=== PATIENT | male | born 1990 | race Caucasian/White ===

== ENCOUNTER 2022-02-03 16:22 | Emergency (ER) | payer OTHER, SELFPAY ==
--- NOTE | ~2022-02-03 | XR_ITS ---
EXAMINATION: XR CHEST CLINICAL INFORMATION: Shortness of breath COMPARISON: Chest x-ray 09/30/2019 TECHNIQUE: 2 views of the chest were obtained. FINDINGS: No significant abnormality is noted involving the heart, lungs, mediastinum, bony thorax or soft tissues. XR/XR chest 2V IMPRESSION: Unremarkable examination.
--- NOTE | ~2022-02-03 | US_ITS ---
EXAMINATION: US ABDOMEN LIMITED CLINICAL INFORMATION: Upper abdominal pain. Evaluate gallbladder.. COMPARISON: None TECHNIQUE: Limited right upper quadrant abdominal ultrasound for evaluation of the gallbladder. FINDINGS: PANCREAS: Not imaged. LIVER: Not fully evaluated. There is. The mildly increased hepatic echotexture suggesting fatty infiltration-limited assessment. GALLBLADDER: The gallbladder is physiologically distended without evidence of stones, sludge, polyps, wall thickening or pericholecystic fluid. Question of mild ringdown artifact in the fundus, possibly mild focal adenomyomatosis. The patient did not have a sonographic Joyner sign at time of the exam per technologist report. COMMON BILE DUCT: Normal in caliber measuring 0.3 cm in diameter. RIGHT KIDNEY: Not imaged FREE FLUID: None. US/US abdomen limited IMPRESSION: 1. No evidence of cholelithiasis or acute cholecystitis. No biliary ductal dilation.
[2022-02-03 16:28] VITALS: BP 116/62; PULSE 89; RESP 18; TEMP 36.6; O2SAT 96; BMI 40.2
--- NOTE | 2022-02-03 16:32 | ECG_ITS ---
Test Reason : sob Blood Pressure : / mmHG Vent. Rate : 084 BPM Atrial Rate : 084 BPM P-R Int : 156 ms QRS Dur : 088 ms QT Int : 348 ms P-R-T Axes : 049 069 057 degrees QTc Int : 411 ms Normal sinus rhythm Normal ECG When compared with ECG of 18-JUN-2019 12:14, No significant change was found Referred By: Generic ED Physician Electronically Signed By:Harris Emerson
[2022-02-03 16:45] LABS: MANUAL DIFF FLAG NO
[2022-02-03 16:47] LABS: Basophils Percent Auto 0.3 % (0-2); Eosinophils Absolute Auto 0.1 X10*3/uL (0.0-0.4); Eosinophils Percent Auto 1.2 % (0-4); Hematocrit 46.3 % (42.0-52.0); Hemoglobin 15.6 g/dl (14.0-18.0); Imm Gran Abs Auto 0.02 X10*3/uL (0.00-0.03); Imm Gran Pct Auto 0.3 % (0.0-0.4); Lymphocytes Absolute Auto 1.5 X10*3/uL (1.2-4.9); Lymphocytes Percent Auto 22.9 % (20-40); Mean Corpuscular HGB Conc 33.7 g/dl (31.0-36.0); Mean Corpuscular Hemoglobin 27.7 pg (27.0-33.0); Mean Corpuscular Volume 82.1 fL (80.0-98.0); Mean Platelet Volume 11.1 fL (9.4-12.4); Monocytes Absolute Auto 0.5 X10*3/uL (0.1-1.2); Neutrophils Absolute Auto 4.4 x10*3/uL (2.0-8.3); Neutrophils Percent Auto 67.3 % (45-73); Platelet Count 256 X10*3/uL (160-400); Red Blood Count 5.64 X10*6/uL (4.60-5.80); White Blood Count 6.5 X10*3/uL (4.8-10.8)
[2022-02-03 17:03] LABS: COVID-19 Test Negative (Negative)
[2022-02-03 17:09] LABS: Alanine Aminotransferase 48 U/L (0-40); Albumin Level 4.5 g/dL (3.5-5.0); Alkaline Phosphatase 89 U/L (39-117); Anion Gap 11 (12-20); Aspartate Amino Transferase 20 U/L (5-37); Bilirubin Total 0.5 mg/dL (0.0-1.0); Blood Urea Nitrogen 11 mg/dL (9-16); Calcium 9.2 mg/dL (8.4-10.2); Carbon Dioxide 25 mmol/L (22-29); Chloride 107 mmol/L (96-108); Creatinine Clr Calc Pharmacy 185.2; Estimated Glomerular Filt Rate > 60; Glucose Random 79 mg/dL (60-115); Lipase 9 U/L (8-78); Sodium 139 mmol/L (135-145)
[2022-02-03 17:15] LABS: Troponin-I High Sensitivity < 3.5 ng/L (<3.5-35.0)
--- NOTE | 2022-02-03 17:31 | ED_ITS ---
HPI - SOB/Dyspnea General Chief Complaint: Dyspnea Stated Complaint: sob and upper abd pain Time Seen by Provider: 02/03/22 17:19 Source: patient Mode of arrival: ambulatory Limitations: no limitations History of Present Illness HPI Narrative: 31 yo male who is obese with no other medical history here with complaints of MENDOSA >10 yrs. He has no associated cough, wheezing, chest pain, leg swelling or leg pain. He also has SOB at nighttime and wakes with it. He has spoken to his PCP and they recommended he lose weight. He has not had any PFTS or sleep apnea testing. He has no history of asthma but does have family history. He also reports upper abdominal tightness which wraps around him like a band daily which is worsened at nighttime and he normally has one episode of vomiting acid in the morning x months. he had been taking omeprazole in the past but states it made me feel worse. no associated diarrhea, constipation, urinary symptoms, fevers, chills. Related Data Allergies Allergy/AdvReac Type Severity Reaction Status Date / Time hydrocodone [From VICODIN] Allergy Intermediate ITCHINESS Verified 02/03/22 16:28 Review of Systems Review of Systems: Yes all other systems are reviewed and are negative Constitutional: Constitutional: Reports no additional constitutional complaints, Denies body ache(s), Denies chills, Denies fever(s), Denies headache(s) and Denies weakness Eyes: Eyes: Reports no additional eye complaints and Denies change in vision ENT: Reports system reviewed and no additional complaints, except as documented, Denies dizziness, Denies headache(s), Denies nasal congestion, Denies nasal discharge and Denies neck pain Cardiovascular: Cardiovascular: Reports no additional cardiovascular complaints, Denies chest pain, Denies leg edema, Denies dyspnea and Reports dyspnea on exertion Respiratory: Respiratory: Reports no additional respiratory complaints, Denies cough, Denies dyspnea and Reports dyspnea on exertion Gastrointestinal: Gastrointestinal: Reports no additional gastrointestinal complaints, Reports abdominal pain, Denies diarrhea, Reports nausea and Reports vomiting Genitourinary: Genitourinary: Denies urinary incontinence Musculoskeletal: Musculoskeletal: Reports no additional musculoskeletal complaints, Denies back pain, Denies arthralgias, Denies joint swelling, Denies neck pain, Denies numbness and Denies tingling Integumentary/Breasts: Skin/Breast: Reports system reviewed and no additional complaints, except as docu and Denies rash Neurologic: Reports system reviewed and no additional complaints, except as documented, Denies Abnormal speech present, Denies dizziness, Denies headache(s), Denies numbness, Denies tingling and Denies weakness PMFSH Past Medical History Attestation statement: The following information was validated with the patient. Source: old records reviewed and nursing notes reviewed Social History Social History Patient Tobacco Use Status: Former Tobacco user Use of substances other than those prescribed or required for medical reasons: No Advance Directives: No Advance Directives Information Provided: No Physical Exam Vital Signs: Vital Signs: Last Vital Signs Temp 97.8 F 02/03/22 16:28 Pulse 89 02/03/22 16:28 Resp 18 02/03/22 16:28 BP 116/62 02/03/22 16:28 Pulse Ox 96 02/03/22 16:28 O2 Del Method 02/03/22 16:28 BMI result Body Mass Index 40.2 Const: General: cooperative, healthy appearing, comfortable and no acute distress Nutritional Appearance: obese Orientation/consciousness: patient oriented x3 Limitations: no limitations HEENT: Head: Yes normal to inspection Ears: hearing grossly normal bilaterally General nose exam: Normal external nose present Face and si nus: Yes normal facial exam Mouth: Normal oral and palatal mucosa present Throat: Yes posterior oropharynx normal Eyes: General: appearance normal, both eyes and all related structures Pupils: Equal, round and reactive pupils present Neck: Neck: Yes normal visual inspection Chest: Chest palpation & inspection: normal inspection of the chest Resp: Effort & Inspection: normal respiratory effort Auscultation: clear to auscultation bilaterally Cardio: Rate: regular rate Rhythm: regular rhythm Peripheral pulses: Peripheral pulses 2+ throughout GI: Inspection: Yes normal to inspection Palpation (GI): Soft to palpation and Tenderness to palpation present (GI) (epigastric with no rebound or guarding ) Auscultation: normal bowel sounds Back/Spine/Pelvis: Thoracic/Lumbar Spine: thoracic and lumbar spine normal to inspection Skin: General skin exam: no rashes or lesions noted Neuro: General: patient oriented x3, no focal motor deficits and normal sensation to monofilament Cranial nerves: Yes Equal, round and reactive pupils present Cognition (Neuro): normal cognition Speech: No Abnormal speech present Gait exam (Neuro): Normal gait present Motor exam (neuro): 5/5 motor strength present throughout Extrem: General: Yes normal to inspection and Yes no pedal edema Course Course Course Narrative: 1855-labs are unremarkable. EKG and chest x-ray show no acute finding. The abdominal ultrasound shows no stones, no sludge, no polyps, no peer E coli cystic fluid or wall thickening. There is a question of a possible mild focal adenomyomatosis. Patient is tolerating p.o.. His pain is well controlled. 1. MENDOSA/orthopnea-recommended follow-up outpatient with his provider. He is speaking full sentences. His vitals are stable. His lung sounds are clear. May need additional outpatient workup 2. Epigastric pain with ?adenomyomatosis seen on US with no evidence of acute jared. Pain well controlled. Tolerating PO. Will discharge home and have patient f/u with surgery outpatient. Recommend bland diet. -reviewed worrisome signs symptoms with the patient and when to return to the emergency department. Comfortable discharge home. MDM - SOB/Dyspnea MDM Narrative Medical decision making narrative: 31 yo male with years of MENDOSA and orthopnea with no associated cough/fever/chest pain or leg swelling. ON exam VSS. LS CTA. Exam is benign. Will check labs, CXR, EKG, covid screen. Also months of upper abdominal tightness with one episode of vomiting acid in the morning. On exam epigastric tenderness with no rebound or guarding. Will check UA, abdominal US. Differential Diagnosis Differential diagnosis: Likely congestive heart failure, pneumonia, pulmonary embolism and sleep apnea Medical Records Attestation: I reviewed the patient's medical records. Lab Data Attestation: I reviewed the patient's lab results. Result diagrams: 02/03/22 16:41 02/03/22 16:41 Labs: Lab Results 02/03/22 02/03/22 02/03/22 Range/Units 16:41 16:41 16:41 WBC 6.5 (4.8-10.8) X10*3/uL RBC 5.64 (4.60-5.80) X10*6/uL Hgb 15.6 (14.0-18.0) g/dl Hct 46.3 (42.0-52.0) % MCV 82.1 (80.0-98.0) fL MCH 27.7 (27.0-33.0) pg MCHC 33.7 (31.0-36.0) g/dl RDW 13.0 (11.0-16.0) % Plt Count 256 (160-400) X10*3/uL MPV 11.1 (9.4-12.4) fL Immature Gran % (Auto) 0.3 (0.0-0.4) % Neut % (Auto) 67.3 (45-73) % Lymph % (Auto) 22.9 (20-40) % [place] % (Auto) 8.0 (2-11) % Eos % (Auto) 1.2 (0-4) % Baso % (Auto) 0.3 (0-2) % Lymph # (Auto) 1.5 (1.2-4.9) X10*3/uL [place] # (Auto) 0.5 (0.1-1.2) X10*3/uL Eos # (Auto) 0.1 (0.0-0.4) X10*3/uL Baso # (Auto) 0.0 (0.0-0.2) X10*3/uL Abs Immat Gran (auto) 0.02 (0.00-0.03) X10*3/uL Absolute Neuts (auto) 4.4 (2.0-8.3) x10*3/uL Absolute Nucleated RBC 0.000 (0.0-0.012) X10*3/uL Nucleated RBC % (auto) 0.0 (0.0-0.2) /100WBC PT (9.9-13.0) SEC INR (0.9-1.1) D-Dimer High Sensitivty NG/ML Sodium 139 (135-145) mmol/L Potassium 4.0 (3.3-5.1) mmol/L Chloride 107 (96-108) mmol/L Carbon Dioxide 25 (22-29) mmol/L Anion Gap 11 L (12-20) BUN 11 (9-16) mg/dL Creatinine 0.86 (0.5-1.4) mg/dL Estim Creat Clear Calc 185.2 Estimated GFR > 60 Random Glucose 79 (60-115) mg/dL Calcium 9.2 (8.4-10.2) mg/dL Total Bilirubin 0.5 (0.0-1.0) mg/dL AST 20 (5-37) U/L ALT 48 H (0-40) U/L Alkaline Phosphatase 89 (39-117) U/L Troponin I High Sens < 3.5 (<3.5-35.0) ng/L B-Natriuretic Peptide < 10 (<100) pg/mL Total Protein 7.0 (6.5-8.0) g/dL Albumin 4.5 (3.5-5.0) g/dL Lipase 9 (8-78) U/L COVID-19 (LUMA) (Negative) COVID-19 Clin Com 02/03/22 02/03/22 Range/Units 16:41 18:15 WBC (4.8-10.8) X10*3/uL RBC (4.60-5.80) X10*6/uL Hgb (14.0-18.0) g/dl Hct (42.0-52.0) % MCV (80.0-98.0) fL MCH (27.0-33.0) pg MCHC (31.0-36.0) g/dl RDW (11.0-16.0) % Plt Count (160-400) X10*3/uL MPV (9.4-12.4) fL Immature Gran % (Auto) (0.0-0.4) % Neut % (Auto) (45-73) % Lymph % (Auto) (20-40) % [place] % (Auto) (2-11) % Eos % (Auto) (0-4) % Baso % (Auto) (0-2) % Lymph # (Auto) (1.2-4.9) X10*3/uL [place] # (Auto) (0.1-1.2) X10*3/uL Eos # (Auto) (0.0-0.4) X10*3/uL Baso # (Auto) (0.0-0.2) X10*3/uL Abs Immat Gran (auto) (0.00-0.03) X10*3/uL Absolute Neuts (auto) (2.0-8.3) x10*3/uL Absolute Nucleated RBC (0.0-0.012) X10*3/uL Nucleated RBC % (auto) (0.0-0.2) /100WBC PT 12.1 (9.9-13.0) SEC INR 1.1 (0.9-1.1) D-Dimer High Sensitivty < 150 NG/ML Sodium (135-145) mmol/L Potassium (3.3-5.1) mmol/L Chloride (96-108) mmol/L Carbon Dioxide (22-29) mmol/L Anion Gap (12-20) BUN (9-16) mg/dL Creatinine (0.5-1.4) mg/dL Estim Creat Clear Calc Estimated GFR Random Glucose (60-115) mg/dL Calcium (8.4-10.2) mg/dL Total Bilirubin (0.0-1.0) mg/dL AST (5-37) U/L ALT (0-40) U/L Alkaline Phosphatase (39-117) U/L Troponin I High Sens (<3.5-35.0) ng/L B-Natriuretic Peptide (<100) pg/mL Total Protein (6.5-8.0) g/dL Albumin (3.5-5.0) g/dL Lipase (8-78) U/L COVID-19 (LUMA) Negative (Negative) COVID-19 Clin Com See Note Imaging Data Chest x-ray: Attestation: I personally reviewed and interpreted this imaging study as f bradlows: Radiologist's impression: EXAMINATION: XR CHEST CLINICAL INFORMATION: Shortness of breath COMPARISON: Chest x-ray 09/30/2019 TECHNIQUE: 2 views of the chest were obtained. FINDINGS: No significant abnormality is noted involving the heart, lungs, mediastinum, bony thorax or soft tissues. XR/XR chest 2V IMPRESSION: Unremarkable examination. US - abdomen: Attestation: I personally reviewed and interpreted this imaging study as follows: Radiologist's impression: [address] [address] Ultrasound Report Signed Patient: Yobani Vásquez MR#: [id number] : 1990 Acct:[id number] Age/Sex: 31 / M ADM Date: 02/03/22 Loc: .ED Attending Dr: Ordering Physician: Brina Estrada NP Date of Service: 02/03/22 Procedure(s): US abdomen limited Accession Number(s): [id number] cc: Brina Estrada NP~ EXAMINATION: US ABDOMEN LIMITED CLINICAL INFORMATION: Upper abdominal pain. Evaluate gallbladder.. COMPARISON: None TECHNIQUE: Limited right upper quadrant abdominal ultrasound for evaluation of the gallbladder. FINDINGS: PANCREAS: Not imaged. LIVER: Not fully evaluated. There is. The mildly increased hepatic echotexture suggesting fatty infiltration-limited assessment. GALLBLADDER: The gallbladder is physiologically distended without evidence of stones, sludge, polyps, wall thickening or pericholecystic fluid. Question of mild ringdown artifact in the fundus, possibly mild focal adenomyomatosis. The patient did not have a sonographic Joyner sign at time of the exam per technologist report. COMMON BILE DUCT: Normal in caliber measuring 0.3 cm in diameter. RIGHT KIDNEY: Not imaged FREE FLUID: None. US/US abdomen limited IMPRESSION: ? 1. No evidence of cholelithiasis or acute cholecystitis. No biliary ductal dilation. ECG Data Attestation: I personally reviewed and interpreted this ECG as follows: ECG interpretation date: 02/03/22 ECG interpretation time: 16:27 Interpretation: NSR with rate 84, normal pr, normal qrs, normal qt Discharge Plan Discharge Clinical Impression: Exertional shortness of breath, Abdominal pain, Adenomyomatosis of gallbladder Patient Disposition: Home, Self-Care Instructions: Abdominal Pain (ED), Shortness of Breath (ED) Additional Instructions: Your lab work, EKG and chest x-ray were all very reassuring today. You should follow-up with her primary care doctor for your chronic shortness of breath to have further outpatient workup done. If you are to developed worsening shortness of breath, chest pain please return to the emergency department. Your ultrasound of your gallbladder did show appears to be a gallbladder adenomyomatosis. Please follow a bland diet. Follow up with surgery outpatie nt. Return to the emergency department if your unable to tolerate oral liquids, have severe abdominal pain, fever. Referrals: Mikie Mata MD [Physician] - 2 weeks Interventions: ED Discharge Assessment Last Done: 02/03/22 20:16 Discharge Date/Time: 02/03/22 20:16
[2022-02-03 18:02] LABS: B Type Natriuretic Peptide < 10 pg/mL (<100)
[2022-02-03 18:26] LABS: INTERNATIONAL NORM RATIO 1.1 (0.9-1.1); Prothrombin Time 12.1 SEC (9.9-13.0)
[2022-02-03 18:29] LABS: D Dimer High Sensitivity < 150 NG/ML
== END 2022-02-03 20:16 | disposition home or self-care (01) ==
PROVIDERS: Nurse Practitioner Family; Emergency Provider Emergency Medicine Emergency Medical Services
DX: R06.02 Shortness of breath (principal); R10.9 Unspecified abdominal pain; D13.5 Benign neoplasm of extrahepatic bile ducts; Z20.822 Contact with and (suspected) exposure to COVID-19
CPT/HCPCS: 36415; 71046; 76705; 80053; 83690; 83880; 84484; 85025; 85379; 85610; 87635; 93005; 99284

== ENCOUNTER 2022-03-18 20:23 | Emergency (ER) | payer OTHER, SELFPAY ==
--- NOTE | ~2022-03-18 | XR_ITS ---
EXAMINATION: XR HAND, RIGHT CLINICAL INFORMATION: Pain COMPARISON: None TECHNIQUE: PA, lateral, and oblique views of the right hand. FINDINGS: Oblique fracture of the mid and distal second proximal phalanx with slight impaction and mild dorsal displacement. The fracture extends to the radial margin of the head of the proximal phalanx. No appreciable involvement of the articular surface. Overlying soft tissue swelling. No dislocation. No additional fracture. Joint spaces throughout the hand and wrist are maintained. XR/XR hand RT min 3V IMPRESSION: 1. Oblique mildly impacted and dorsally displaced fracture of the second proximal phalanx, as above.
[2022-03-18 21:41] VITALS: BP 138/79; PULSE 78; RESP 16; TEMP 36.6; O2SAT 97; BMI 39.1
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
[2022-03-18] MEDS: traMADoL HCL 50 MG TABLET PO (23:49)
--- NOTE | 2022-03-18 23:50 | PC.NURSE ---
field support technician at bedside for splint. Pt medicated per
== END 2022-03-19 00:10 | disposition home or self-care (01) ==
PROVIDERS: Emergency Provider Emergency Medicine; PCP Family Medicine
DX: S62.610A Displaced fracture of proximal phalanx of right index finger, initial encounter for closed fracture (principal); W22.8XXA Striking against or struck by other objects, initial encounter; Y93.I9 Activity, other involving external motion; Y92.9 Unspecified place or not applicable; Y99.9 Unspecified external cause status
CPT/HCPCS: 29125; 73130; 99283; 99284

== ENCOUNTER → 2022-03-22 14:46 | Outpatient (BNVA) | payer OTHER, SELFPAY | PROVIDERS: PCP Family Medicine; Visit Provider Orthopaedic Surgery | DX: S62.610A Displaced fracture of proximal phalanx of right index finger, initial encounter for closed fracture (principal) | CPT/HCPCS: 99202 ==

== ENCOUNTER 2022-03-24 06:10 | Day surgery (SDC) | payer OTHER, SELFPAY ==
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
--- NOTE | ~2022-03-24 | FL_ITS ---
EXAMINATION: XR FLUOROSCOPY WITH IMAGES CLINICAL INFORMATION: Fracture, reduction COMPARISON: Radiographs right hand 03/18/2022 TECHNIQUE: Fluoroscopy performed by Dr. Mechelle Julien. Fluoroscopy time: 1.25 minutes. Cumulative Dose: 1.95 mGy. DAP: 0.1178 Gy-cm2. Images: 5. FINDINGS: There is an oblique fracture involving the proximal phalanx right index finger. Fracture is reduced with 6 orthopedic pins. Fracture fragments are in near-anatomic alignment. No dislocation. Hardware intact. FL/FL guidance in OR IMPRESSION: Fluoroscopy for orthopedic procedure.
[2022-03-24 07:01] VITALS: BMI 42.2
[2022-03-24 07:21] VITALS: BP 141/91; PULSE 86; RESP 18; TEMP 36.4; O2SAT 98
--- NOTE | 2022-03-24 08:14 | MHC.SHP ---
Pre-Procedural Eval Section A Date of Service: 03/24/22 The patient is an INPATIENT: No Changes since office visit: No Cold of Flu in the past 2 weeks, No New Medical Problems, No Changes in Medication and No Patient answered all questions The History & Physical has been completed within 30 days and I have reviewed it.: Yes Section B Chief Complaint: Fracture of unspecified phalanx of right index fin Allergies: Allergies Allergy/AdvReac Type Severity Reaction Status Date / Time hydrocodone [From VICODIN] Allergy Intermediate ITCHINESS Verified 03/22/22 15:12 Plan I have reviewed the history and physical and performed a pertinent physical examination on my patient. No changes have occurred unless specified.
--- NOTE | 2022-03-24 08:15 | W.PM.OPN ---
Operative Note Operative Note Date of Service: 03/24/22 Narrative: Operative Note Narrative: Preop diagnosis: 1. Right index finger proximal phalanx fracture Postop diagnosis: Same Procedure: 1. Right index finger proximal phalanx fracture closed reduction percutaneous pinning Surgeon: Mechelle Julien MD Anesthesia: General Anesthesia Findings: proximal phalanx fracture, oblique Implants: 0.045 K-wires x2, 0.035 K-wires x4 Tourniquet time: 0 minutes EBL: 5.0 ml Specimen: none Drains: None Complications: None Disposition: Brought to the recovery room in stable condition Plan: Follow-up in 10-14 days for wound check, pre clinic radiographs and for placement in a short-arm shotgun shell assembly machine operator cast. Wrist in slight extension, MCP joints in 90 degrees of flexion, PIP joint straight. 1-2 folded 4x4s beneath the index finger can elevate the index finger slightly so that the K-wires passed above the middle finger rather than Pushing against it. Anticipate K-wire removal at 5-6 weeks postop Indications: The patient is a [age] year old man with a right index finger proximal phalanx fracture with displacement . The risks and benefits of operative treatment, including but not limited to risk of damage to blood vessels, nerves, tendons, infection, recurrence, persistent pain or numbness, incomplete resolution of preoperative symptoms, or need for further surgery were discussed with the patient and they wished to proceed with surgery. Procedure: Once consent was obtained patient was brought back to the operating suite and placed in the operating table in a supine position. Perioperative antibiotics and anesthesia was administered by the anesthesia team. A tourniquet was applied to the proximal aspect of the right upper extremity and the limb was prepped and draped in a standard surgical fashion. the tourniquet was not inflated. A closed reduction was performed with good results. As we obtain such a good reduction without needing to open the fracture site I elected to proceed with a percutaneous pinning. A 0.045 K-wire was placed obliquely and orthogonal tool our fracture through the ulnar distal fragment across the fracture site and exiting through the radial proximal aspect of the proximal phalanx. In a similar manner I placed another 0.045 K-wire and for Axe 0.035 K-wires through the ulnar distal fragment, a for across the fracture site and into the proximal radial aspect of the right index finger proximal phalanx. Care was taken to assure that all were not parallel and we had them fanning out slightly. 2 of them were placed transversely all in an effort to secure fracture. Once satisfied with our reduction and placement of all K-wires they were bent cut short had pin caps applied. I was satisfied with our reduction and placement of all implants. Final radiographs were obtained. At this point the tourniquet was deflated and hemostasis obtained with a brief period of local pressure. A digital block was performed with some 0.5% ropivacaine for postop pain control. A sterile dressing was and a shotgun shell assembly machine operator volar splint extending from the fingertips to the volar forearm with the MCP joints in flexion was applied. The patient appears to have tolerated the procedure well and with no complications. All digits were well vascularized conclusion of the case.
[2022-03-24 11:00] VITALS: BP 115/65; PULSE 101; RESP 16; TEMP 36.1; O2SAT 93
[2022-03-24 11:05] VITALS: BP 132/74; PULSE 97; RESP 16; O2SAT 94
[2022-03-24 11:10] VITALS: BP 142/74; PULSE 89; RESP 14; O2SAT 96
[2022-03-24 11:15] VITALS: BP 127/77; PULSE 89; RESP 18; O2SAT 96
[2022-03-24 11:37] VITALS: TEMP 36.3
== END 2022-03-24 11:50 | disposition home or self-care (01) ==
LOC: HO.SSS 06:10
PROVIDERS: PCP Family Medicine; Visit Provider Orthopaedic Surgery
PROC: (CPT 26727; principal; 2022-03-24 08:10)
DX: S62.610A Displaced fracture of proximal phalanx of right index finger, initial encounter for closed fracture (principal); R20.0 Anesthesia of skin; W22.8XXA Striking against or struck by other objects, initial encounter; Y93.89 Activity, other specified; Y92.9 Unspecified place or not applicable; Y99.8 Other external cause status; Z88.8 Allergy status to other drugs, medicaments and biological substances; Z87.891 Personal history of nicotine dependence
CPT/HCPCS: 26727; J0690; J1100; J2250; J2405; J2795; J3010

== ENCOUNTER 2022-04-06 13:50 | Outpatient (REF) | payer OTHER, SELFPAY ==
--- NOTE | ~2022-04-06 | XR_ITS ---
EXAMINATION: XR HAND, RIGHT CLINICAL INFORMATION: Pain. COMPARISON: 03/24/2022 and 03/18/2022. TECHNIQUE: PA, lateral, and oblique views of the right hand. FINDINGS: 6 K wires are seen used for fixation of oblique 2nd proximal phalanx fracture. No change in alignment is seen compared to fluoroscopy of 03/24/2022. Fracture line is still evident. There is soft tissue swelling present. No periosteal new bone formation. No new fracture or dislocation is evident. XR/XR hand RT min 3V IMPRESSION: No change in appearance of right hand as described.
== END 2022-04-06 13:51 | disposition home or self-care (01) ==
LOC: HO.HOSX 13:50
PROVIDERS: Visit Provider Physician Assistant
DX: M79.641 Pain in right hand (principal)
CPT/HCPCS: 73130

== ENCOUNTER → 2022-04-15 14:15 | Outpatient (BNVA) | payer OTHER, SELFPAY | PROVIDERS: PCP Family Medicine; Visit Provider Physician Assistant | DX: S62.610D Displaced fracture of proximal phalanx of right index finger, subsequent encounter for fracture with routine healing (principal) | CPT/HCPCS: 29085 ==

== ENCOUNTER 2022-05-04 08:29 | Outpatient (REF) | payer OTHER, SELFPAY ==
--- NOTE | ~2022-05-04 | XR_ITS ---
EXAMINATION: XR HAND, RIGHT CLINICAL INFORMATION: Pain in the right hand. COMPARISON: Multiple prior radiographs most recent 04/06/2022. TECHNIQUE: PA, lateral, and oblique views of the right hand. FINDINGS: Stable postoperative changes with multiple K wires crossing the oblique fracture of the distal 2nd proximal phalanx. Fracture line still visible with unchanged alignment. No callus. Mild soft tissue prominence compatible with soft tissue swelling unchanged. Remaining bones joints and soft tissues unremarkable. XR/XR hand RT min 3V IMPRESSION: Stable postoperative changes with fracture unchanged proximal phalanx of 2nd finger.
== END 2022-05-04 08:30 | disposition home or self-care (01) ==
LOC: HO.HOSX 08:29
PROVIDERS: Visit Provider Orthopaedic Surgery
DX: M79.641 Pain in right hand (principal)
CPT/HCPCS: 73130

== ENCOUNTER 2022-05-10 09:12 | Outpatient (REF) | payer OTHER, SELFPAY ==
--- NOTE | ~2022-05-10 | XR_ITS ---
EXAMINATION: XR HAND, RIGHT CLINICAL INFORMATION: Fracture proximal phalanx index finger. Follow-up. COMPARISON: Radiographs right hand 05/04/2022, 04/06/2022. TECHNIQUE: PA, lateral, and oblique views of the right hand. FINDINGS: There is an oblique fracture involving the index finger proximal phalanx, fixated with 6 K wires. The hardware is intact. Alignment is stable. Fracture line is still visible. No destructive process or periostitis. Remainder of the bony structures are unremarkable. XR/XR hand RT min 3V IMPRESSION: No significant change in alignment fracture proximal phalanx right index finger. Hardware intact.
== END 2022-05-10 09:13 | disposition home or self-care (01) ==
LOC: HO.HOSX 09:12
PROVIDERS: Visit Provider Orthopaedic Surgery
DX: M79.641 Pain in right hand (principal)
CPT/HCPCS: 73130

== ENCOUNTER 2022-05-17 11:09 | Outpatient (REF) | payer OTHER, SELFPAY ==
--- NOTE | ~2022-05-17 | XR_ITS ---
EXAMINATION: XR HAND, RIGHT CLINICAL INFORMATION: Right hand pain. COMPARISON: None TECHNIQUE: PA, lateral, and oblique views of the right hand. FINDINGS: The patient is status post ORIF of the proximal phalanx of the second digit with [address] transfixing an oblique fracture with overall good anatomic alignment and no evidence for hardware malfunction. Mild adjacent soft tissue swelling is seen. The remainder the digits are intact. The carpal bones are normally aligned. The distal radius and ulna are intact. XR/XR hand RT min 3V IMPRESSION: Status post second digit ORIF without overt abnormality as detailed above.
== END 2022-05-17 11:10 | disposition home or self-care (01) ==
LOC: HO.HOSX 11:09
PROVIDERS: Visit Provider Orthopaedic Surgery
DX: M79.641 Pain in right hand (principal)
CPT/HCPCS: 73130

== ENCOUNTER 2022-06-13 20:52 | Outpatient (REF) | payer OTHER, SELFPAY | END 2022-06-13 20:53 | disposition home or self-care (01) | LOC: HO.HOSX 20:52 | PROVIDERS: Visit Provider Orthopaedic Surgery | DX: Z13.89 Encounter for screening for other disorder (principal) ==

== ENCOUNTER 2022-09-21 00:57 | Emergency (ER) | payer OTHER, SELFPAY ==
--- NOTE | ~2022-09-21 | XR_ITS ---
EXAMINATION: XR CHEST CLINICAL INFORMATION: Shortness of breath, cough COMPARISON: 02/03/2022 TECHNIQUE: Frontal view of the chest was obtained. FINDINGS: Lung volumes are symmetric. No focal consolidation is seen. No evidence of pneumothorax, pleural effusion, or pulmonary edema. The cardiomediastinal contour is unremarkable. No acute osseous findings are seen. XR/XR chest 1V IMPRESSION: No acute cardiopulmonary findings.
[2022-09-21 01:00] VITALS: BP 142/76; PULSE 100; RESP 20; TEMP 36.3; O2SAT 95; BMI 43.5
[2022-09-21 01:37] LABS: COVID-19 Test Negative (Negative); IDNOW Serial# 16C4AD1C; IDNOW Serial# BCCEAD1C; Influenza A Negative (Negative); Influenza B2 Negative (Negative)
--- NOTE | 2022-09-21 01:49 | ED_ITS ---
HPI - URI/Sore Throat General Chief Complaint: Upper Respiratory Symptoms Stated Complaint: Cough Time Seen by Provider: 09/21/22 01:32 Source: patient Mode of arrival: ambulatory History of Present Illness HPI Narrative: Patient obese with no significant lung issues being having dry cough with wheezing in the nighttime for last 2 weeks unable to sleep no shortness of breath no fever no chest no history of sleep apnea Related Data Previous Rx's Medication Instructions Recorded acetaminophen 500 mg tablet 500 mg PO Q6H PRN pain #20 tabs 03/18/22 tramadol 50 mg tablet 50 mg PO BID PRN pain #7 tabs 03/18/22 albuterol sulfate 90 mcg/actuation 2 puff inhalation Q4-6H PRN 09/21/22 aerosol inhaler (ProAir HFA) shortness of breath or wheezing #8.5 grams azithromycin 250 mg tablet 250 mg PO DAILY 4 days #4 tabs 09/21/22 (Zithromax Z-Allen) benzonatate 200 mg capsule 200 mg PO TID PRN cough #30 caps 09/21/22 prednisone 20 mg tablet 40 mg PO DAILY #10 tabs 09/21/22 Allergies Allergy/AdvReac Type Severity Reaction Status Date / Time hydrocodone [From VICODIN] Allergy Intermediate ITCHINESS Verified 09/21/22 01:05 Review of Systems Review of Systems: Yes all other systems are reviewed and are negative [facility] Social History Social History Patient Tobacco Use Status: Former Tobacco user Quit Date: 2020 Advance Directives: No Advance Directives Information Provided: No Current occupational status: employed Current occupation: self employed/ rt hand Physical Exam Vital Signs: Vital Signs: Last Vital Signs Temp 98.1 F 09/21/22 03:07 Pulse 96 09/21/22 03:07 Resp 18 09/21/22 03:07 BP 139/86 09/21/22 03:07 Pulse Ox 98 09/21/22 03:07 O2 Del Method 09/21/22 03:07 BMI result Body Mass Index 43.5 Appearance: Alert. Oriented X3. No acute distress. ENT: Pharynx normal. Oral Mucosa moist Neck: Normal inspection. Neck supple. CVS: Normal heart rate and rhythm. Pulses normal. Respiratory: No respiratory distress. Equal air entry bilateral, prolonged expiration Abdomen: Soft and nontender. Bowel sounds are present, no mass palpable, no CVA tenderness Skin: Skin warm and dry. Normal skin color. Normal skin turgor. Extremities: No lower extremity edema. No calf tenderness Neuro: Oriented X 3. No motor deficit. Medications Administered Discontinued Medications Generic Name Dose Route Start Last Admin Trade Name Freq PRN Reason Stop Dose Admin Albuterol Sulfate 2 puff 09/21/22 02:30 09/21/22 02:40 Albuterol Sulfate 90 Mcg 8 Gm Inhaler INHALE 09/21/22 02:31 2 puff ONCE ONE Administration Azithromycin 500 mg 09/21/22 02:39 09/21/22 02:56 Azithromycin 500 Mg Tablet PO 09/21/22 02:40 500 mg ONCE ONE Administration Guaifenesin/Codeine Phosphate 10 ml 09/21/22 02:30 09/21/22 02:57 Guaifen/Codeine Sf 200/20/10ml 10 Ml Liquid PO 09/21/22 02:31 10 ml ONCE ONE Administration Prednisone 60 mg 09/21/22 02:30 09/21/22 02:56 Prednisone 20 Mg Tablet PO 09/21/22 02:31 60 mg ONCE ONE Administration Medical Decision Making Medical Decision Making MDM Narrative: Patient clinically with bronchitis COVID/flu negative chest x-ray negative for infiltrate will discharge patient home on prednisone inhaler and short course of antibiotic Lab Data MDM Lab Attestation statement: I reviewed the patient's lab results. Labs: Lab Results 09/21/22 09/21/22 Range/Units 01:08 01:08 COVID-19 (LUMA) Negative (Negative) COVID-19 Clin Com See Note Influenza Type A (NYDIA) Negative (Negative) Influenza Type B (NYDIA) Negative (Negative) Influenza A & B Note See Note Discharge Plan Discharge Clinical Impression: Acute bronchitis Patient Disposition: Home, Self-Care Instructions: Acute Bronchitis (ED) Additional Instructions: Use inhaler and cough drops as advised Antibiotics as prescribed Follow with PCP if not better Prescriptions: New albuterol sulfate [ProAir HFA] 90 mcg/actuation HFA aerosol inhaler 2 puff inhalation Q4-6H PRN (Reason: shortness of breath or wheezing) Qty: 8.5 0RF azithromycin [Zithromax Z-Allen] 250 mg tablet 250 mg PO DAILY 4 Days Qty: 4 0RF Rx Instructions: start on day 2 of therapy benzonatate 200 mg capsule 200 mg PO TID PRN (Reason: cough) Qty: 30 0RF prednisone 20 mg tablet 40 mg PO DAILY Qty: 10 0RF No Action tramadol 50 mg tablet 50 mg PO BID PRN (Reason: pain) Qty: 7 0RF acetaminophen 500 mg tablet 500 mg PO Q6H PRN (Reason: pain) Qty: 20 0RF Interventions: ED Discharge Assessment Last Done: 09/21/22 03:08 Discharge Date/Time: 09/21/22 03:08
[2022-09-21] MEDS: Albuterol Sulfate 90 MCG 8 GM INHALER 2 PUFF INHALE (02:40)
[2022-09-21 02:43] VITALS: PULSE 92; RESP 18; O2SAT 100
[2022-09-21] MEDS: predniSONE 20 MG TABLET 60 MG PO (02:56)
[2022-09-21] MEDS: Azithromycin 500 MG TABLET PO (02:56)
[2022-09-21] MEDS: guaiFEN/Codeine SF 200/20/10ML 10 ML LIQUID PO (02:57)
[2022-09-21 03:06] VITALS: O2SAT 98
[2022-09-21 03:07] VITALS: BP 139/86; PULSE 96; RESP 18; TEMP 36.7; O2SAT 98
== END 2022-09-21 03:08 | disposition home or self-care (01) ==
PROVIDERS: Emergency Provider Internal Medicine
DX: J20.9 Acute bronchitis, unspecified (principal); R05.9 Cough, unspecified; Z20.822 Contact with and (suspected) exposure to COVID-19; Z20.828 Contact with and (suspected) exposure to other viral communicable diseases; Z79.899 Other long term (current) drug therapy
CPT/HCPCS: 71045; 87502; 87635; 94640; 94664; 99284; 99285

== ENCOUNTER 2024-06-25 00:58 | Emergency (ER) | payer OTHER, SELFPAY ==
[2024-06-25 01:05] VITALS: BP 116/54; PULSE 69; RESP 18; TEMP 36.2; O2SAT 95; BMI 41.7
[2024-06-25 01:25] LABS: IDNOW Serial# 6674DD1D; Strep A Nucleic Acid Negative (Negative)
--- NOTE | 2024-06-25 04:00 | ED_ITS ---
HPI - General Adult General Chief complaint: General Medical Stated complaint: strep test Time Seen by Provider: 06/25/24 03:47 Source: patient and family Mode of arrival: ambulatory Limitations: no limitations History of Present Illness ED Provider: DR. Elliott HPI narrative: 33-year-old male came in for evaluation of sore throat, patient's daughter was diagnosed with strep throat and patient has been sharing food with her, no fever, no chills. No coughing. Related Data Previous Rx's ?Medication ?Instructions ?Recorded acetaminophen 500 mg tablet 500 mg PO Q6H PRN pain #20 tabs 03/18/22 tramadol 50 mg tablet 50 mg PO BID PRN pain #7 tabs 03/18/22 albuterol sulfate 90 mcg/actuation 2 puff inhalation Q4-6H PRN 09/21/22 aerosol inhaler (ProAir HFA) shortness of breath or wheezing #8.5 grams azithromycin 250 mg tablet 250 mg PO DAILY 4 days #4 tabs 09/21/22 (Zithromax Z-Allen) benzonatate 200 mg capsule 200 mg PO TID PRN cough #30 caps 09/21/22 prednisone 20 mg tablet 40 mg (2 x 20 mg) PO DAILY #10 tabs 09/21/22 amoxicillin 500 mg-potassium 1 tab PO BID #14 tabs 06/25/24 clavulanate 125 mg tablet (Augmentin) Allergies Allergy/AdvReac Type Severity Reaction Status Date / Time hydrocodone [From VICODIN] Allergy Intermediate ITCHINESS Verified 06/25/24 01:06 Review of Systems Review of Systems: All other systems are reviewed and are negative Constitutional: Reports as per HPI and Reports no additional constitutional complaints Eyes: Reports as per HPI and Reports no additional eye complaints Reports system reviewed and no additional complaints, except as documented Cardiovascular: Reports as per HPI and Reports no additional cardiovascular complaints Respiratory: Reports as per HPI and Reports no additional respiratory complaints Gastrointestinal: Reports as per HPI and Reports no additional gastrointestinal complaints Genitourinary: Reports no additional female genitourinary complaints Musculoskeletal: Reports no additional musculoskeletal complaints Skin/Breast: Reports system reviewed and no additional complaints, except as docu Psychiatric: Reports no additional psychiatric complaints Endocrine: Reports no additional endocrine complaints Hematologic/Lymphatic: Reports no additional hematologic/lymphatic complaints Allergic/Immunologic: Reports no additional allergic/immunologic complaints Reports system reviewed and no additional complaints, except as documented and Reports Abnormal speech present [facility] Social History Social History Patient Tobacco Use Status: Former Tobacco user Advance Directives: No Advance Directives Information Provided: No Do you have a plan to hurt others: No Plan Current occupational status: employed Current occupation: self employed/ rt hand Physical Exam ED Vital Signs: Vital Signs - 24 hr 06/25/24 01:05 Temperature 97.1 F Pulse Rate 69 Respiratory Rate 18 Blood Pressure 116/54 L Pulse Oximetry 95 Oxygen Delivery Method Room Air BMI result Body Mass Index 41.7 Vital signs have been reviewed and appear to be correct. Blood pressure elevated. Heart rate normal. Respiratory rate normal. Temperature normal. Oxygen saturation normal. Appearance: Alert. Oriented X3. No acute distress. Head: Normal external exam. Normocephalic. Atraumatic. No Roberts signs noted. No raccoon eyes noted Eyes: PERRLA. EOMI. Conjunctiva and sclera normal. Eyelids normal. ENT: TM's Normal. Pharynx normal. Uvula midline. Moist mucous membranes. No trismus noted. No drooling noted. No muffled voice noted. Neck: Normal inspection. Neck supple. FROM. No adenopathy. Thyroid Normal. No meningeal signs. No neck mass noted. CVS: Normal heart rate and rhythm. Heart sound normal. No murmurs noted. Pulses normal throughout. Respiratory: No respiratory distress. Painless inspiration. Breath sounds normal. No wheezes/rales/rhonchi noted. Chest nontender. No accessory muscle usage noted or decreased air movement noted. Abdomen: Soft and nontender. Bowel sounds normal in all 4 quadrants. No distention noted. No organomegaly noted. No visible injury noted. Back: No CVA tenderness. Full range of motion noted. Skin: Skin warm and dry. Normal skin color. Normal skin turgor. No rashes/lesions/lacerations noted. Extremities: No lower extremity edema. Extremities exhibit normal range of motion. Extremities nontender. Neuro: Oriented X 3. Cranial nerve exam: II-XII are grossly intact No motor deficit. No sensory deficit. Reflexes normal. Course Reevaluation(s) Reevaluation #1: Pharyngitis after was exposed to daughter who was diagnosed with strep pharyngitis. We will start the patient on 7 days' course of Augmentin. Time: 04:02 Medical Decision Making Differential Diagnosis Differential Diagnoses: The differential diagnosis associated with the presentation includes (Pharyngitis, viral infection.) Admission/Observation Consideration of admission/observation: Escalation of care including admission/observation considered Lab Data MDM Lab Attestation statement: I reviewed the patient's lab results. Labs: Lab Results 06/25/24 Range/Units 01:09 S. pyogenes GrpA NYDIA Negative (Negative) Discharge Plan Discharge Clinical Impression: Pharyngitis Patient Disposition: Home, Self-Care Instructions: Pharyngitis (ED) Prescriptions: New amoxicillin-pot clavulanate [Augmentin] 500-125 mg tablet 1 tab PO BID Qty: 14 0RF No Action tramadol 50 mg tablet 50 mg PO BID PRN (Reason: pain) Qty: 7 0RF acetaminophen 500 mg tablet 500 mg PO Q6H PRN (Reason: pain) Qty: 20 0RF albuterol sulfate [ProAir HFA] 90 mcg/actuation HFA aerosol inhaler 2 puff inhalation Q4-6H PRN (Reason: shortness of breath or wheezing) Qty: 8.5 0RF azithromycin [Zithromax Z-Allen] 250 mg tablet 250 mg PO DAILY 4 Days Qty: 4 0RF Rx Instructions: start on day 2 of therapy benzonatate 200 mg capsule 200 mg PO TID PRN (Reason: cough) Qty: 30 0RF prednisone 20 mg tablet 40 mg PO DAILY Qty: 10 0RF Print Language: Occitan
[2024-06-25] MEDS: Amoxicillin/Potassium Clav 875 MG TABLET PO (04:56)
[2024-06-25 05:55] VITALS: BP 120/62; PULSE 72; RESP 18; TEMP 36.6; O2SAT 95
== END 2024-06-25 05:00 | disposition home or self-care (01) ==
PROVIDERS: Emergency Provider Emergency Medicine
DX: J02.9 Acute pharyngitis, unspecified (principal)
CPT/HCPCS: 87651; 99282; 99283

== ENCOUNTER 2025-08-13 13:04 | Emergency (ER) | payer OTHER, SELFPAY ==
--- NOTE | ~2025-08-13 | XR_ITS ---
EXAMINATION: XR CHEST 2 VIEWS HISTORY: cough 2 weeks COMPARISON: Comparison is made with the prior examination dated 09/21/2022. FINDINGS: PA and lateral views of the chest are submitted. The lungs are expanded and clear. There is no pleural effusion, pneumothorax, or pulmonary vascular congestion. The heart is normal in size. The bones are intact. XR/XR chest 2V IMPRESSION: No acute cardiopulmonary abnormality. Electronically signed by: Jared Larios MD 08/13/2025 02:02 PM [facility]
--- NOTE | 2025-08-13 13:07 | ECG_ITS ---
Test Reason : CP Blood Pressure : */* mmHG Vent. Rate : 85 BPM Atrial Rate : 85 BPM P-R Int : 164 ms QRS Dur : 88 ms QT Int : 348 ms P-R-T Axes : 31 60 54 degrees QTcB Int : 414 ms Normal sinus rhythm Normal ECG When compared with ECG of 03-Feb-2022 16:27, No significant change was found Referred By: Jessika Hernandez Electronically Signed By: GEE BRYAN MD
--- NOTE | 2025-08-13 13:36 | ED_ITS ---
HPI - General Adult General Chief complaint: General Medical Stated complaint: cp w/ cough Time Seen by Provider: 08/13/25 16:27 Related Data Previous Rx's ?Medication ?Instructions ?Recorded acetaminophen 500 mg tablet 500 mg PO Q6H PRN pain #20 tabs 03/18/22 tramadol 50 mg tablet 50 mg PO BID PRN pain #7 tab s 03/18/22 albuterol sulfate 90 mcg/actuation 2 puff inhalation Q 4-6H PRN 09/21/22 aerosol inhaler (ProAir HFA) shortness of breath or wh eezing #8.5 grams azithromycin 250 mg tablet 250 mg PO DAILY 4 days #4 t abs 09/21/22 (Zithromax Z-Allen) benzonatate 200 mg capsule 200 mg PO TID PRN cough #30 caps 09/21/22 prednisone 20 mg tablet 40 mg (2 x 20 mg) PO DAILY # 10 tabs 09/21/22 amoxicillin 500 mg-potassium 1 tab PO BID #14 tabs 01/11 clavulanate 125 mg tablet (Augmentin) Allergies Allergy/AdvReac Type Severity Reaction Status Date / Time hydrocodone (From VICODIN) Allergy Intermediate ITCHINESS Verified 08/13/25 13:39 [facility] Social History Social History Patient Tobacco Use Status: Former Tobacco user Current occupational status: employed Current occupation: self employed/ rt hand Physical Exam ED Vital Signs: Vital Signs - 24 hr 08/13/25 13:38 Temperature 97.7 F Pulse Rate 88 Respiratory Rate 18 Blood Pressure 123/60 Pulse Oximetry 97 Oxygen Delivery Method Room Air BMI result Body Mass Index 42.2 Course Course Course Narrative: This is a rapid medical exam performed by Beti Hernandez NP: Additional HPI, ROS, PE not included below will be deferred to primary provider. Patient is a 34y/o M presenting with complaint of cough which is occasionally productive for the past 2 weeks. Now having right sided chest pain when coughing. Plan: CXR Patient left the emergency department before myself or any of the other clinicians could review or explain physical exam findings, test results, need or lack there of for additional testing, treatment options, or a treatment plan. Discharge Plan Discharge Clinical Impression: Acute costochondritis Patient Disposition: Left W/O Completing Treatment Additional Instructions: What is Costochondritis? You have been diagnosed with costochondritis, which is inflammation of the cartilage that connects your ribs to your breastbone. This is a common and benign condition that causes chest wall pain. While the pain can be concerning, costochondritis is not dangerous and does not affect your heart or lungs. What to Expect Most patients experience complete resolution of pain within 3 weeks with appropriate treatment and rest. This condition is self-limited, meaning it will improve on its own with time. The recurrence rate is low (approximately 4% over two years). Treatment at Home Pain Relief Medications: * First choice:?Apply topical anti-inflammatory gel (such as diclofenac gel) to the painful area 3-4 times daily * Alternative options:?Take [id number] anti-inflammatory medications like ibuprofen or naproxen as directed on the package, OR take acetaminophen (Tylenol) for pain relief * Additional options:?Lidocaine patches or capsaicin cream may be applied to the affected area for pain relief Heat Therapy: * Apply a heating pad or warm compress to the painful area for 15-20 minutes several times daily * This can help reduce pain and muscle tension Activity Modifications: * Avoid activities that worsen your chest pain, such as heavy lifting, pushing, pulling, or repetitive arm movements * Gradually return to normal activities as your pain improves * Rest is an important part of recovery When to Seek Medical Attention Return to the emergency department or call your doctor immediately if you experience: * Shortness of breath or difficulty breathing * Dizziness or lightheadedness * Sweating, nausea, or feeling like you might pass out * Pain that spreads to your jaw, neck, arms, or back * Pain that feels different from your original chest wall pain * Fever or signs of infection * Worsening pain despite treatment Follow-Up Care * Schedule a follow-up appointment with your primary care doctor in 2-3 weeks if your symptoms have not improved * If pain persists beyond 3-4 weeks despite treatment, you may benefit from physical therapy or other interventions * Most patients do not require any additional testing or imaging Important Reminders * Costochondritis is a musculoskeletal condition and is not related to heart disease * The condition is benign and will resolve with conservative treatment * Be patient with your recovery?improvement may be gradual * If taking anti-inflammatory medications, take them with food to reduce stomach upset Prescriptions: No Action tramadol 50 mg tablet 50 mg PO BID PRN (Reason: pain) Qty: 7 0RF acetaminophen 500 mg tablet 500 mg PO Q6H PRN (Reason: pain) Qty: 20 0RF albuterol sulfate [ProAir HFA] 90 mcg/actuation HFA aerosol inhaler 2 puff inhalation Q4-6H PRN (Reason: shortness of breath or wheezing) Qty: 8.5 0RF azithromycin [Zithromax Z-Allen] 250 mg tablet 250 mg PO DAILY 4 Days Qty: 4 0RF Rx Instructions: start on day 2 of therapy benzonatate 200 mg capsule 200 mg PO TID PRN (Reason: cough) Qty: 30 0RF prednisone 20 mg tablet 40 mg PO DAILY Qty: 10 0RF amoxicillin-pot clavulanate [Augmentin] 500-125 mg tablet 1 tab PO BID Qty: 14 0RF
[2025-08-13 13:38] VITALS: BP 123/60; PULSE 88; RESP 18; TEMP 36.5; O2SAT 97; BMI 42.2
--- OUTSIDE RECORDS SUMMARY | 2025-08-13 16:35 | XMS_ITS ---
Author Name [facility] Organization Unknown Care Team Organization Name Specialty Phone Email Start Date End Da te [facility] Stacy Peace Primary [facility] 12/26/2022 024 [facility] Rossy Correa MD Primary Care 06/28/2022 04/08/2024
== END 2025-08-13 17:01 | disposition left against medical advice (07) ==
PROVIDERS: Emergency Provider Emergency Medicine
DX: M94.0 Chondrocostal junction syndrome [Tietze] (principal); R05.9 Cough, unspecified; Z87.891 Personal history of nicotine dependence
CPT/HCPCS: 71046; 93005; 99283

== ENCOUNTER → 2025-08-13 13:07 | Outpatient (BNV) | payer OTHER, SELFPAY | PROVIDERS: Visit Provider Internal Medicine Cardiovascular Disease | DX: R07.9 Chest pain, unspecified (principal) | CPT/HCPCS: 93010 ==

== ENCOUNTER → 2025-08-13 13:37 | Outpatient (BNV) | payer OTHER, SELFPAY | PROVIDERS: Visit Provider Radiology Diagnostic Radiology | DX: R05.9 Cough, unspecified (principal) | CPT/HCPCS: 71046 ==